=== PATIENT | female | born 1975 | race African-American/Black ===

== ENCOUNTER 2022-03-03 12:15 | Inpatient (IN) ==
--- NOTE | 2022-03-03 13:57 | Emergency Department Note ---
Impression & Plan Hallucinations, Hypokalemia, Anxiety ED Provider Note Provider: Gt Wilkinson MD DATE OF SERVICE: 03/03/2022 CHIEF COMPLAINT: Hearing voices HISTORY OF PRESENT ILLNESS: Patient is a 46-year-old female history of uterine fibroid as well as she reports schizophrenia presenting here today brought by police. Evidently the police were called to the patient's apartment for disturbance. Per report given to nursing the police only found her and then she came in for evaluation. She reports to me that she is taking her medications, topiramate, and following with outpatient psychiatry. She tells me that she has had some white bumps occur on her feet but they appear better now more just like calluses. She states that over the last day or so she has begun to see sort of a transparent blob and she is been hearing commanding voices. She states that they are not making threatening statements but not telling her to hurt her self or anyone else. She states she does not have thoughts of wanting to hurt herself or anyone else. She states she is scared to go home and states she cannot sleep because things are happening. She states she has fibroids and is followed with [facility] gynecology. She states she has been having a sensation that she is having pressure at times in her vagina. She states it almost feels like something is had sex with her. She also states that she been having frequent odd smell sensation. Denies recent fever or abdominal pain. Patient reports a history of inpatient psychiatric care. Patient has required frequent reassurance and redirection by nursing staff upon arrival as she was worked up. REVIEW OF SYSTEMS: A total of 10 review of systems was obtained and negative except as stated above in the HPI. PAST MEDICAL HISTORY: As noted above MEDICATIONS: No medications with the patient which she reports includes Topamax SOCIAL HISTORY: Lives in an apartment PHYSICAL EXAM: GENERAL: alert and oriented in no acute distress on stretcher but at times anxious appearing Head: normocephalic and atraumatic EYES: No injection, discharge or icterus. NECK: Trachea midline. Supple. ENT: Mucous membranes pink and moist. LUNGS: Airway patent. No retractions. Breath sounds clear with good air entry bilaterally. HEART: Regular rate and rhythm. No chest wall tenderness ABDOMEN: Soft and non-tender, without guarding or rebound. SKIN: Acyanotic, warm, dry, without rashes EXTREMITIES: Without swelling, tenderness or deformity some mild calluses on the bilateral heels. NEUROLOGICAL: No focal deficits. No aphasia. No facial droop or slurred speech. Normal strength and tone in the extremities. Sensation to gross touch normal. Ambulatory. Psych: Endorses anxiety but denies significant depression or suicidal ideation. Reporting hallucination of burning smell as well as commanding voices and transparent. Patient occasionally requires a bit of redirection during the interview. Patient's laboratory studies and imaging reviewed. Differential includes Mood disorder, infection, hypoglycemia, electrolyte abnormalities, cardiac sources, intracerebral event, toxicologic, trauma, neurologic, as well as other pathologies. IMPRESSION/MEDICAL DECISION MAKING: Patient presents here for evaluation of the onset of visual and auditory hallucinations. Reports a history of schizophrenia. States she is taking her mood stabilizer she describes as topiramate. Patient denies any falls or trauma. She reports that she is having a smell sensation at times. Reviewed medical record and she is been evaluated here for vaginal pressure sensation recently. Did have imaging showing evidence of a uterine fibroid and states that she is planning to follow-up this coming week with her campus police officer. She denies significant vaginal bleeding or pain but occasionally has some pressure. Not significant concern for acute gynecological intra-abdominal process given this. Were concerning however is the reports of some transparent visual hallucinations as well as auditory hallucinations with the voice telling her things. She denies that they have instructed her to harm her self but they seem somewhat threatening in nature and she is very anxious and despondent about this. Basic blood work was obtained here. No focal neurological deficit I do ubt any acute intracranial bleed or stroke at this time. No seizure-like activity reported. Question if she is having psychosis at this time. Blood work and urine here without severe abnormality although given a tablet of potassium. Patient agreeable this time for inpatient psychiatric care and bed search will begin. Patient given Ativan from some anxiety with improvement. DIAGNOSIS: Hallucinations, hypokalemia, anxiety DISPOSITION: Signed out to me by shift pending inpatient psychiatric treatment on a voluntary basis. Patient to be in observation from 13:36 hrs pending psychiatric almaz cement. Signed out to Dr. Nye. Past Med/Surg History Medical History Elevated LFTs Fibroid, uterine Mental health disorder No pertinent past medical history Surgical History No pertinent past surgical history Social History Smoking Status: Never smoker Tobacco Type: Cigarettes Preferred Language: Syrian Feels Safe at Home: Yes Allergies Allergies Allergy/AdvReac Type Severity Reaction Status Date / Time Penicillins Allergy Severe anaphalyxis Unverified 02/26/22 08:36 and hives Home Meds Home Medications Medication Instructions Recorded Confirmed Mood Stabilizer 0 tab PO DAILY 02/26/22 03/03/22 acetaminophen 500 mg tablet 500 mg PO Q6H PRN 02/26/22 03/03/22 (Tylenol Extra Strength) metformin 1,000 mg tablet 1,000 mg PO BIDM 02/26/22 03/03/22 phentermine 37.5 mg capsule 37.5 mg PO DAILY 02/26/22 03/03/22 topiramate 50 mg tablet 50 mg PO DAILY 03/03/22 03/03/22 Previous Rx's Medication Instructions Recorded magnesium oxide 400 mg PO BID #60 cap 02/26/22 potassium chloride 20 mEq oral 20 meq PO DAILY #30 ea 02/26/22 packet Results & Data (ED) Vital Signs Vital Signs - 24 hr 03/03/22 12:16 03/03/22 14:16 03/03/22 17:03 Temperature 36.5 C 36.7 C Temperature Source Oral Oral Pulse Rate 98 H Pulse Rate [Finger] 85 90 Pulse Rhythm Regular Pulse Rhythm [Finger] Regular Regular Pulse Strength Normal Pulse Strength [Finger] Normal Normal Respiratory Rate 22 16 18 Respiratory Effort / Characteristics Non-Labored Non-Labored Non-Labored Respiratory Depth Normal Normal Normal Respiratory Pattern Regular Blood Pressure 121/86 Blood Pressure [Left Arm] 145/76 H 136/93 Blood Pressure Mean 97 Blood Pressure Mean [Left Arm] 99 107 Blood Pressure Position [Left Arm] Sitting Pulse Oximetry 98 98 100 Oxygen Delivery Method Room Air Room Air Sepsis Recent Fever Within 48 Hours No Sepsis New/Unexplained Change in Mental Status N/A Sepsis Action Taken by Nursing No Action Required Laboratory Data Result diagrams: 03/03/22 13:36 03/03/22 13:36 Lab Results 03/03/22 03/03/22 03/03/22 Range/Units 12:35 13:36 13:36 WBC 5.17 (4.8-10.8) K/uL RBC 3.90 L (4.2-5.4) M/uL Hgb 12.6 (12.0-16.0) g/dL Hct 36.7 L (37-47) % MCV 94.1 (80-100) fL MCH 32.3 (25-34) pg MCHC 34.3 (32-36) g/dL RDW Std Deviation 51.6 H (36.4-46.3) fL RDW Coeff of Xiomara 15.2 H (11.5-14.5) % Plt Count 330 (130-400) K/uL MPV 9.3 (7.4-10.4) fL Immature Gran % (Auto) 0.4 % Neut % (Auto) 42.1 % Lymph % (Auto) 46.6 % [place] % (Auto) 9.5 % Eos % (Auto) 1.2 % Baso % (Auto) 0.2 % Neut # (Auto) 2.18 (1.4-6.5) K/uL Lymph # (Auto) 2.41 (1.2-3.4) K/uL [place] # (Auto) 0.49 (0.11-0.59) K/uL Eos # (Auto) 0.06 (0-0.5) K/uL Baso # (Auto) 0.01 (0-0.2) K/uL Immature Gran # (Auto) 0.02 (0.00-0.02) K/uL Sodium 139 (136-145) mmol/L Potassium 3.1 L (3.5-5.1) mmol/L Chloride 106 (98-107) mmol/L Carbon Dioxide 24 (21-32) mmol/L Anion Gap 9 (3-11) BUN 7 (6-23) mg/dl Creatinine 0.97 (0.6-1.2) mg/dl Est Cr Clr Drug Dosing 81.4 ml/min Est GFR ( Amer) 80.6 ml/min Est GFR (Non-Af Amer) 69.6 ml/min BUN/Creatinine Ratio 7.2 L (10-20) Glucose 87 (70-99(Fasting)) mg/dl Calcium 8.9 (8.5-10.1) mg/dl Total Bilirubin 0.5 (0.2-1.0) mg/dl AST 51 H (13-39) U/L ALT 29 (7-52) U/L Alkaline Phosphatase 53 (34-104) U/L Total Protein 7.4 (6.0-8.3) gm/dl Albumin 4.0 (3.4-5.0) gm/dl Globulin 3.4 (2.5-4.0) gm/dl Albumin/Globulin Ratio 1.2 (0.9-2) TSH (0.300-4.500) uIu/ml Urine Color Urine Appearance (Clear) Urine pH (4.5-7.5) Ur Specific Fin[place] (1.000-1.030) Urine Protein (Negative) Urine Glucose (UA) (Negative) Urine Ketones (Negative) Urine Blood (Negative) Urine Nitrite (Negative) Urine Bilirubin (Negative) Urine Urobilinogen (Negative) Ur Leukocyte Esterase (Negative) Urine WBC (Auto) (0-5) /hpf Urine RBC (Auto) (0-4) /hpf U Hyaline Cast (Auto) (0-5) /lpf U Epithel Cells (Auto) (0-5) /lpf Urine Bacteria (Auto) (Negative) POC Ur Test (NEG) Salicylates (3.0-30) mg/dl Urine Opiates Screen (Neg) Ur Methadone, Qual (Neg) Acetaminophen (10-30) ug/ml Urine Barbiturates (Neg) Ur Phencyclidine (PCP) (Neg) U Amphetamin/Meth Scrn (Neg) MDMA (Ecstasy) Screen (Neg) U Benzodiazepines Scrn (Neg) Ur Cocaine Metabolite (Neg) U Marijuana (THC) Screen (Neg) Ethyl Alcohol mg/dL (<10.0) mg/dl SARS-CoV-2, RNA, NAAT NEGATIVE (NEGATIVE) 03/03/22 03/03/22 03/03/22 Range/Units 13:36 13:36 13:36 WBC (4.8-10.8) K/uL RBC (4.2-5.4) M/uL Hgb (12.0-16.0) g/dL Hct (37-47) % MCV (80-100) fL MCH (25-34) pg MCHC (32-36) g/dL RDW Std Deviation (36.4-46.3) fL RDW Coeff of Xiomara (11.5-14.5) % Plt Count (130-400) K/uL MPV (7.4-10.4) fL Immature Gran % (Auto) % Neut % (Auto) % Lymph % (Auto) % [place] % (Auto) % Eos % (Auto) % Baso % (Auto) % Neut # (Auto) (1.4-6.5) K/uL Lymph # (Auto) (1.2-3.4) K/uL [place] # (Auto) (0.11-0.59) K/uL Eos # (Auto) (0-0.5) K/uL Baso # (Auto) (0-0.2) K/uL Immature Gran # (Auto) (0.00-0.02) K/uL Sodium (136-145) mmol/L Potassium (3.5-5.1) mmol/L Chloride (98-107) mmol/L Carbon Dioxide (21-32) mmol/L Anion Gap (3-11) BUN (6-23) mg/dl Creatinine (0.6-1.2) mg/dl Est Cr Clr Drug Dosing ml/min Est GFR ( Amer) ml/min Est GFR (Non-Af Amer) ml/min BUN/Creatinine Ratio (10-20) Glucose (70-99(Fasting)) mg/dl Calcium (8.5-10.1) mg/dl Total Bilirubin (0.2-1.0) mg/dl AST (13-39) U/L ALT (7-52) U/L Alkaline Phosphatase (34-104) U/L Total Protein (6.0-8.3) gm/dl Albumin (3.4-5.0) gm/dl Globulin (2.5-4.0) gm/dl Albumin/Globulin Ratio (0.9-2) TSH 0.738 (0.300-4.500) uIu/ml Urine Color Urine Appearance (Clear) Urine pH (4.5-7.5) Ur Specific [place] (1.000-1.030) Urine Protein (Negative) Urine Glucose (UA) (Negative) Urine Ketones (Negative) Urine Blood (Negative) Urine Nitrite (Negative) Urine Bilirubin (Negative) Urine Urobilinogen (Negative) Ur Leukocyte Esterase (Negative) Urine WBC (Auto) (0-5) /hpf Urine RBC (Auto) (0-4) /hpf U Hyaline Cast (Auto) (0-5) /lpf U Epithel Cells (Auto) (0-5) /lpf Urine Bacteria (Auto) (Negative) POC Ur Test (NEG) Salicylates < 3.0 L (3.0-30) mg/dl Urine Opiates Screen (Neg) Ur Methadone, Qual (Neg) Acetaminophen < 3 L (10-30) ug/ml Urine Barbiturates (Neg) Ur Phencyclidine (PCP) (Neg) U Amphetamin/Meth Scrn (Neg) MDMA (Ecstasy) Screen (Neg) U Benzodiazepines Scrn (Neg) Ur Cocaine Metabolite (Neg) U Marijuana (THC) Screen (Neg) Ethyl Alcohol mg/dL < 10.0 (<10.0) mg/dl SARS-CoV-2, RNA, NAAT (NEGATIVE) 03/03/22 03/03/22 03/03/22 Range/Units 15:05 Unknown Unknown WBC (4.8-10.8) K/uL RBC (4.2-5.4) M/uL Hgb (12.0-16.0) g/dL Hct (37-47) % MCV (80-100) fL MCH (25-34) pg MCHC (32-36) g/dL RDW Std Deviation (36.4-46.3) fL RDW Coeff of Xiomara (11.5-14.5) % Plt Count (130-400) K/uL MPV (7.4-10.4) fL Immature Gran % (Auto) % Neut % (Auto) % Lymph % (Auto) % [place] % (Auto) % Eos % (Auto) % Baso % (Auto) % Neut # (Auto) (1.4-6.5) K/uL Lymph # (Auto) (1.2-3.4) K/uL [place] # (Auto) (0.11-0.59) K/uL Eos # (Auto) (0-0.5) K/uL Baso # (Auto) (0-0.2) K/uL Immature Gran # (Auto) (0.00-0.02) K/uL Sodium (136-145) mmol/L Potassium (3.5-5.1) mmol/L Chloride (98-107) mmol/L Carbon Dioxide (21-32) mmol/L Anion Gap (3-11) BUN (6-23) mg/dl Creatinine (0.6-1.2) mg/dl Est Cr Clr Drug Dosing ml/min Est GFR ( Amer) ml/min Est GFR (Non-Af Amer) ml/min BUN/Creatinine Ratio (10-20) Glucose (70-99(Fasting)) mg/dl Calcium (8.5-10.1) mg/dl Total Bilirubin (0.2-1.0) mg/dl AST (13-39) U/L ALT (7-52) U/L Alkaline Phosphatase (34-104) U/L Total Protein (6.0-8.3) gm/dl Albumin (3.4-5.0) gm/dl Globulin (2.5-4.0) gm/dl Albumin/Globulin Ratio (0.9-2) TSH (0.300-4.500) uIu/ml Urine Color Dark Yellow Urine Appearance Clear (Clear) Urine pH 5.5 (4.5-7.5) Ur Specific [place] 1.019 (1.000-1.030) Urine Protein 1+ H (Negative) Urine Glucose (UA) Negative (Negative) Urine Ketones Trace H (Negative) Urine Blood Negative (Negative) Urine Nitrite Negative (Negative) Urine Bilirubin Negative (Negative) Urine Urobilinogen Negative (Negative) Ur Leukocyte Esterase Negative (Negative) Urine WBC (Auto) 1-5 (0-5) /hpf Urine RBC (Auto) 0-4 (0-4) /hpf U Hyaline Cast (Auto) 1-5 (0-5) /lpf U Epithel Cells (Auto) >30 H (0-5) /lpf Urine Bacteria (Auto) Negative (Negative) POC Ur Test NEG (NEG) Salicylates (3.0-30) mg/dl Urine Opiates Screen Neg (Neg) Ur Methadone, Qual Neg (Neg) Acetaminophen (10-30) ug/ml Urine Barbiturates Neg (Neg) Ur Phencyclidine (PCP) Neg (Neg) U Amphetamin/Meth Scrn Pos H (Neg) MDMA (Ecstasy) Screen Pos H (Neg) U Benzodiazepines Scrn Neg (Neg) Ur Cocaine Metabolite Neg (Neg) U Marijuana (THC) Screen Neg (Neg) Ethyl Alcohol mg/dL (<10.0) mg/dl SARS-CoV-2, RNA, NAAT (NEGATIVE) Administered Medications Discontinued Medications Lorazepam (Lorazepam 1 Mg Tab) Confirm Administered Dose 1 mg .ROUTE .STK-MED ONE Stop: 03/03/22 17:05 Last Admin: 03/03/22 17:05 Dose: 1 mg Documented by: [id number] Potassium Chloride (Potassium Chloride Crtab 20 Meq Tabcr) 40 meq PO NOW STA Stop: 03/03/22 15:37 Last Admin: 03/03/22 15:54 Dose: 40 meq Documented by: [id number] Discharge Plan Visit Data Chief Complaint: Mental Health Evaluation Stated Complaint: MENTAL HEALTH EVAL ED Provider: Gt Wilkinson Discharge Problem: Hallucinations, Hypokalemia, Anxiety Patient Disposition: Still a Patient Forms Stand Alone Forms: [facility], Suicide Prevention Resources Prescriptions Prescriptions: No Action topiramate 50 mg tablet 50 mg PO DAILY RF: 0 acetaminophen [Tylenol Extra Strength] 500 mg Tablet 500 mg PO Q6H PRN (Reason: Pain) RF: 0 metformin 1,000 mg tablet 1,000 mg PO BIDM RF: 0 phentermine 37.5 mg capsule 37.5 mg PO DAILY RF: 0 Mood Stabilizer 0 tab PO DAILY RF: 0 potassium chloride 20 mEq packet 20 meq PO DAILY Qty: 30 RF: 0 magnesium oxide 400 mg magnesium capsule 400 mg PO BID Qty: 60 RF: 0 Referrals Referrals: Zee Kirk MD [Primary Care Provider] -
[2022-03-03 14:15] LABS: Basophils # (auto) 0.01 K/uL (0-0.2); Basophils % (auto) 0.2 %; Eosinophils # (auto) 0.06 K/uL (0-0.5); Eosinophils % (auto) 1.2 %; Hematocrit (blood only) 36.7 % (37-47); Hemoglobin 12.6 g/dL (12.0-16.0); Immature Granulocytes # (auto) 0.02 K/uL (0.00-0.02); Immature Granulocytes % (auto) 0.4 %; Lymphocytes # (auto) 2.41 K/uL (1.2-3.4); Lymphocytes % (auto) 46.6 %; Mean Corpuscular Hemoglobin 32.3 pg (25-34); Mean Corpuscular Hgb Conc 34.3 g/dL (32-36); Mean Corpuscular Volume 94.1 fL (80-100); Mean Platelet Volume 9.3 fL (7.4-10.4); Monocytes # (auto) 0.49 K/uL (0.11-0.59); Monocytes % (auto) 9.5 %; Neutrophils # (auto) 2.18 K/uL (1.4-6.5); Neutrophils % (auto) 42.1 %; Platelet Count 330 K/uL (130-400); RDW Coefficient of Variation 15.2 % (11.5-14.5); RDW Standard Deviation 51.6 fL (36.4-46.3); White Blood Count 5.17 K/uL (4.8-10.8)
[2022-03-03 14:27] LABS: Acetaminophen < 3 ug/ml (10-30); Albumin Globulin Ratio 1.2 (0.9-2); BUN Creatinine Ratio 7.2 (10-20); Bilirubin,Total 0.5 mg/dl (0.2-1.0); Calcium 8.9 mg/dl (8.5-10.1); Creatinine Clr Calc Pharmacy 81.4 ml/min; Est GFR (African American) 80.6 ml/min; Est GFR (Non-African American) 69.6 ml/min; Globulin 3.4 gm/dl (2.5-4.0); Potassium 3.1 mmol/L (3.5-5.1); Salicylate < 3.0 mg/dl (3.0-30); Total Protein 7.4 gm/dl (6.0-8.3)
[2022-03-03] MEDS ORDERED: POTASSIUM CHLORIDE CRTAB 20 MEQ TABCR PO STA (15:36)
[2022-03-03 15:37] LABS: Appearance Urine Clear (Clear); Bacteria Urine Automated Negative (Negative); Bilirubin Urine Negative (Negative); Blood Urine Negative (Negative); Color Urine Dark Yellow; Epithelial Cell Urine Auto >30 /lpf (0-5); Glucose Urine UA Negative (Negative); Ketones Urine Trace (Negative); Leukocyte Esterase Urine Negative (Negative); Nitrite Urine Negative (Negative); Protein Urine 1+ (Negative); RBC Urine Automated 0-4 /hpf (0-4); Specific Gravity Urine 1.019 (1.000-1.030); Urobilinogen Urine Negative (Negative); pH Urine 5.5 (4.5-7.5)
[2022-03-03 16:24] LABS: Amphetamines+Metham, Urine Pos (Neg); Barbiturates, Urine Neg (Neg); Benzodiazepine, Urine Neg (Neg); Cocaine, Urine Neg (Neg); MDMA (Ecstacy), Urine Pos (Neg); Methadone, Urine Neg (Neg); Opiate, Urine Neg (Neg); Phencyclidine, Urine Neg (Neg)
[2022-03-03] MEDS ORDERED: LORazepam 1 MG TAB ONE (17:04)
--- NOTE | 2022-03-03 17:47 | Emergency Department Note ---
ED Visit Note ED Physician Sign Out Note: 46 yr old female with a long history of schizophrenia arrives with acute thoughts of paranoia and anxiety. Medically cleared by Dr Wilkinson and plan for 201 voluntary hospitalization. Pending placement at time of sign out to me. Placed in observation at 13:36 on 03/03/[address] Wilkinson pending placement. Patient was accepted to [facility]. at 18:00 on 03/03/22 and 201 was signed by me at which point she was transferred to their unit. Cornell Nye MD
[2022-03-03] MEDS ORDERED: ACETAMINOPHEN 325 MG TAB PO PRN (18:19)
[2022-03-03] MEDS ORDERED: BISMUTH SUBSALICYLATE LIQD 236 ML PO PRN (18:19)
[2022-03-03] MEDS ORDERED: SODIUM CHLORIDE 0.65% NA SOLN 45 ML (OCEAN) PRN (18:19)
[2022-03-03] MEDS ORDERED: hydrOXYzine HCl 25 MG TAB PO PRN ×2 (18:19)
[2022-03-03] MEDS ORDERED: MAGNESIUM HYDROXIDE SUSP 30 ML UDC PO PRN (18:19)
[2022-03-03] MEDS ORDERED: ALUMINUM/MAGNESIUM SUSP 30 ML UDC PO PRN (18:19)
[2022-03-03] MEDS ORDERED: NICOTINE POLACRILEX 2 MG GUM MT PRN (19:14)
[2022-03-03] MEDS: OLANZapine 5 MG TABLET PO PRN (21:42)
[2022-03-04] MEDS: OLANZapine 5 MG TABLET PO PRN ×3 (07:39→17:15)
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
[2022-03-04] MEDS: LORazepam 1 MG TAB PO PRN (12:35)
[2022-03-04] MEDS: MAGNESIUM OXIDE 400 MG TAB PO SCH ×2 (12:35→21:42)
[2022-03-04] MEDS: POTASSIUM CHLORIDE PWD 20 MEQ PACK PO SCH (12:35)
[2022-03-04] MEDS: TOPIRAMATE 50 MG TAB PO SCH (12:36)
[2022-03-04] MEDS: NICOTINE 21 MG/24 HR TDSY TD SCH (12:37)
[2022-03-04] MEDS: metFORMIN HCL 500 MG TAB PO SCH (17:15)
[2022-03-05] MEDS: metFORMIN HCL 500 MG TAB PO SCH ×2 (08:14→17:13)
[2022-03-05] MEDS: POTASSIUM CHLORIDE PWD 20 MEQ PACK PO SCH (08:14)
[2022-03-05] MEDS: MAGNESIUM OXIDE 400 MG TAB PO SCH ×2 (08:14→21:51)
[2022-03-05] MEDS: OLANZapine 5 MG TABLET PO PRN ×3 (08:15→21:52)
[2022-03-05] MEDS: TOPIRAMATE 50 MG TAB PO SCH (08:15)
[2022-03-05] MEDS: NICOTINE 21 MG/24 HR TDSY TD SCH (09:31)
[2022-03-05] MEDS: LORazepam 1 MG TAB PO PRN ×2 (10:41→17:34)
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
[2022-03-05] MEDS ORDERED: CAPSAICIN CR 0.075% 60 GM TUBE EXT PRN (13:04)
[2022-03-05] MEDS: LURASIDONE HCL 40 MG TAB PO SCH (17:13)
[2022-03-05] MEDS ORDERED: GABAPENTIN 300 MG CAP PO SCH (22:00)
[2022-03-06 07:56] LABS: Chol HDL Ratio 2.3 (0-5); Potassium 4.1 mmol/L (3.5-5.1)
[2022-03-06] MEDS: NICOTINE 21 MG/24 HR TDSY TD SCH (08:40)
[2022-03-06] MEDS: MAGNESIUM OXIDE 400 MG TAB PO SCH ×2 (08:40→21:27)
[2022-03-06] MEDS: POTASSIUM CHLORIDE PWD 20 MEQ PACK PO SCH (08:41)
[2022-03-06] MEDS: metFORMIN HCL 500 MG TAB PO SCH ×2 (08:41→17:35)
[2022-03-06] MEDS: TOPIRAMATE 50 MG TAB PO SCH (08:42)
[2022-03-06] MEDS: GABAPENTIN 300 MG CAP PO SCH ×2 (13:22→21:27)
--- NOTE | 2022-03-06 13:27 | Psychiatric Progress Note ---
Date of Service March 06, 2022 Impression / Recommendations Impression Antelmo is a 46 yo female with a history of schizophrenia, non compliant with antispsychotic medications for at least several months and prescribed an agent that increases dopamine for weight loss. Phentiramine side effects apparently can also include a tingling sensation in the hands and feet which may be contributing to some of her somatic delusions. She currently needs to rest and has been cooperative with prn Zyprexa which is helping acutely but another agent with a more favorable metabolic profile would be preferred longer term. Started Latuda trial on 03/05/22. Continues on MNPR due to psychosis. 03/06/22: some improvement in that less thought blocked, hallucinations primarily auditory at this point, tolerated first dose of Latuda. (1) Schizophrenia: 03/06/22: one more dose of Latuda 40 mg before increase, would like to confirm authorization prior to titrating in case need to switch agents. Notes from [place] note a trial of Rexulti samples. Titrate Neurontin to 300 mg BID today and TID tomorrow to assist with anxiety and possible neuropathic pain. Decrease prn Zyprexa to 2.5 mg and use Ativan preferentially as concern if sedation continues patient may start to refuse medications. 03/05/22: risks/benefits/alternatives reviewed re: Latuda 40 mg daily with plan for 60 mg as she has been taking other PO meds consistently even when more psychotic and better metabolic profile than agents available by [facility]. Discussion included but was not limited to need for metabolic and TD monitoring but less side effects than Zyprexa and Haldol and she was agreeable. She does not have DM and her complaints about her hands and feet are likely related to tactile angel or medication side effect but will offer Neurontin this hs and she was willing for even capsaicin cream in case there is a neuropathy component, both are on a trial basis. 03/04/22: The patient was admitted to the [facility] ([facility]) on q15 min checks (behavioral with suicide precautions) for safety. The patient will participate in group, recreational, and milieu therapies and will be offered additional individual and family sessions as clinically appropriate. Hold Phentiramine, given that she is grossly psychotic I do not see a need to taper but will monitor for rebound of appetite, particularly with Zyprexa. Will discuss other antipsychotic options when patient is clearer/able. Will provide Ativan prn 1 mg for severe anxiety if breakthrough between Zyprexa doses. Inventory Assets Strengths: unable to assess Needs: compliance with antipsychotic medications, after care Suicide Risk Level Suicide Risk Level: Moderate (q15 min suicide checks) Suicide Risk Level Comments: has denied SI but is active psychotic, no significant agitation. Risk Factors Assessment Mental Health Diagnoses: Yes Protective Factors Assessment Employed: Yes Supportive Family: Yes (need to confirm) Interval History Identifying Information ANTELMO JEAN-BAPTISTE is a 46-year-old F who currently lives in [place], has a history (reportedly) of schizophrenia, and was admitted on 03/03/22 18:19 on a 201 voluntary commitment for delusions and hallcuinations. Chief Complaint "I don't understand why this is happening but I also can't be this tired." Review of Systems Sleep Information Total Hours of Sleep: 6 Sleep Comments: pt on q-15 minute checks Meal Information Percent Meal Consumed - Breakfast: 100 Percent Meal Consumed - Lunch: 100 Percent Meal Consumed - Dinner: 100 Subjective Subjective Patient was seen & assessed and interval progress reviewed with nursing and social work. States her voices are still present but mainly mumbles. Staff see her at times hitting the couch or darting eyes in response to voices and she seems to have mild thought blocking of suspiciousness upon approach. Receiving multiple prns throughout the day. Slept 6 hrs. Today seems more organized to get numbers out of her phone and contact work. 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 She did not submit a 72 hr notice around this issue but clearly states she wants to attend the appointment. She seems less focussed on her hands and feets but does not necessarily attribute it to neurontin. "I'm just so tired that I can't notice it." Physical Exam Psychiatric Orientation: alert Apperance: appropriately dressed and appropriately groomed Eye Contact: + fair eye contact Motor Behavior: no abnormal motor movements Speech: normal rate/rhythm/volume of speech Affect: + anxious affect and + blunted affect Mood: + anxious mood Thought Process: + concrete thought process; no thought blocking Thought Content: + delusions and + persecution (but less) Suicidal Thoughts: denies suicidal thoughts Homicidal Thoughts: denies homicidal thoughts Hallucinations: + auditory hallucinations; no visual hallucinations Cognition: language grossly intact; + attention not intact Insight: + poor insight Judgement: + poor judgement Vital Signs (Past 24 Hours) Last Vital Signs Temp 36.8 C 03/06/22 06:36 Pulse 94 H 03/06/22 06:37 Resp 18 03/06/22 06:36 BP 136/92 03/06/22 06:37 Pulse Ox 98 03/03/22 19:26 [facility] & [facility] Laboratory Results Laboratory Results - last 24 hr 03/06/22 07:18 Potassium 4.1 Fasting Glucose 94 Triglycerides 113 Cholesterol 163 LDL Cholesterol, Calc 69 VLDL Cholesterol, Calc 23 HDL Cholesterol 71 Cholesterol/HDL Ratio 2.3 Current Inpatient Medications Current Inpatient Medications: Current Inpatient Medications Acetaminophen (Acetaminophen 325 Mg Tab) 650 mg PO Q4H PRN PRN Reason: Headache or Minor Fever Stop: 04/02/22 18:18 Al Hydrox/Mg Hydrox/Simethicone (Aluminum/Magnesium Susp 30 Ml Udc) 30 ml PO Q4H PRN PRN Reason: GI Upset Stop: 04/02/22 18:18 Bismuth Subsalicylate (Bismuth Subsalicylate Liqd 236 Ml) 15 ml PO PRN PRN PRN Reason: Loose Stool Stop: 04/02/22 18:18 Capsaicin (Capsaicin Cr 0.075% 60 Gm Tube) 1 appln EXT BID PRN PRN Reason: Pain Stop: 04/04/22 13:03 Gabapentin (Gabapentin 300 Mg Cap) 300 mg PO TID [facility] Stop: 04/05/22 13:59 Hydroxyzine HCl (Hydroxyzine Hcl 25 Mg Tab) 50 mg PO HSZ PRN PRN Reason: Insomnia Stop: 04/02/22 18:18 Hydroxyzine HCl (Hydroxyzine Hcl 25 Mg Tab) 25 mg PO Q4H PRN PRN Reason: Anxiety Stop: 04/02/22 18:18 Lorazepam (Lorazepam 1 Mg Tab) 1 mg PO Q6 PRN PRN Reason: Anxiety Stop: 04/03/22 10:42 Last Admin: 03/05/22 17:34 Dose: 1 mg Documented by: Lurasidone HCl (Lurasidone Hcl 40 Mg Tab) 40 mg PO QDD [facility] Stop: 04/04/22 17:44 Last Admin: 03/05/22 17:13 Dose: 40 mg Documented by: Magnesium Hydroxide (Magnesium Hydroxide Susp 30 Ml Udc) 30 ml PO DAILY PRN PRN Reason: Constipation Stop: 04/02/22 18:18 Magnesium Oxide (Magnesium Oxide 400 Mg Tab) 400 mg PO BID [facility] Stop: 04/03/22 11:14 Last Admin: 03/06/22 08:40 Dose: 400 mg Documented by: Metformin HCl (Metformin Hcl 500 Mg Tab) 1,000 mg PO BIDM [facility] Stop: 04/03/22 17:44 Last Admin: 03/06/22 08:41 Dose: 1,000 mg Documented by: Miscellaneous (Remove Nicoderm Patch) 1 ea N/A DAILY@0859 [facility] Stop: 04/03/22 08:58 Last Admin: 03/06/22 08:40 Dose: 1 ea Documented by: Nicotine (Nicotine 21 Mg/24 Hr Tdsy) 21 mg TD QAM [facility] Stop: 04/03/22 08:59 Last Admin: 03/06/22 08:40 Dose: 21 mg Documented by: Nicotine Polacrilex (Nicotine Polacrilex 2 Mg Gum) 1 piece MT PRN PRN PRN Reason: Nicotine Olanzapine (Olanzapine 2.5 Mg Tab) 2.5 mg PO Q4 PRN PRN Reason: Agitation Stop: 04/02/22 19:11 Potassium Chloride (Potassium Chloride Pwd 20 Meq Pack) 20 meq PO DAILY [facility] Stop: 04/03/22 11:14 Last Admin: 03/06/22 08:41 Dose: 20 meq Documented by: Sodium Chloride (Sodium Chloride 0.65% Na Soln 45 Ml ([place])) 1 - 2 sprays NA PRN PRN PRN Reason: Nasal Dryness/Congestion Stop: 04/02/22 18:18 Topiramate (Topiramate 50 Mg Tab) 50 mg PO DAILY [facility] Stop: 04/03/22 11:14 Last Admin: 03/06/22 08:42 Dose: 50 mg Documented by: Mental Health & Subst Abuse Tx Psychiatrist Name of Psychiatrist: Mary Jordan PA-C Psychiatrist's Date of Appointment with Psychiatrist: 04/03/22 Time of Appointment with Psychiatrist: 3:00 p.m. Psychiatric Appointment Comment: [address] [facility] Therapist Name of Therapist: None Center Customer Service Associate Name of Center Customer Service Associate: None Post Discharge Appointments Primary Care Physician Name Of Family Doctor: Mary Washington - Dr. Tom Primary [facility] Date of Appointment with PCP: 03/20/22 Time of Appointment with PCP: 9:00 a.m. Provider Appointment Comment: [address] [facility] Contact Information Discharge Discharge Address: [address] [place] [address], [place] [address]
[2022-03-06] MEDS: LURASIDONE HCL 40 MG TAB PO SCH (17:36)
[2022-03-07] MEDS: NICOTINE 21 MG/24 HR TDSY TD SCH (08:25)
[2022-03-07] MEDS: MAGNESIUM OXIDE 400 MG TAB PO SCH ×2 (08:25→21:31)
[2022-03-07] MEDS: GABAPENTIN 300 MG CAP PO SCH ×3 (08:25→21:31)
[2022-03-07] MEDS: metFORMIN HCL 500 MG TAB PO SCH ×2 (08:25→17:05)
[2022-03-07] MEDS: POTASSIUM CHLORIDE PWD 20 MEQ PACK PO SCH (08:26)
[2022-03-07] MEDS: TOPIRAMATE 50 MG TAB PO SCH (08:26)
[2022-03-07] MEDS ORDERED: traZODone HCL 50 MG TAB PO PRN (10:14)
--- NOTE | 2022-03-07 14:12 | Psychiatric Progress Note ---
Date of Service March 07, 2022 Impression / Recommendations Impression Antelmo is a 46 yo female with a history of schizophrenia, non compliant with antispsychotic medications for at least several months and prescribed an agent that increases dopamine for weight loss. Phentiramine side effects apparently can also include a tingling sensation in the hands and feet which may be contributing to some of her somatic delusions. She currently needs to rest and has been cooperative with prn Zyprexa which is helping acutely but another agent with a more favorable metabolic profile would be preferred longer term. Started Latuda trial on 03/05/22, refused 03/06/22. Continues on MNPR due to psychosis. 03/07/22: delay in Latuda trial and authorization. Continues to improve despite significant decrease in prn medications. (1) Schizophrenia: 03/07/22: patient was initially requesting discharge. Reviewed 72 hr notice and current treatment plan/need for additional stabilization. After extensive discussion about her diagnosis and treatment plan she is agreeable to remain hospitalized. Latuda increase tomorrow after determination from insurance and because only received 1 dose. Neurontin is now TID and seems to have decreased need for benzo. Continues to focus on hand/feet/vagina "vibrating" but no longer saying that anyone is poking her or that it's burning. 03/06/22: one more dose of Latuda 40 mg before increase, would like to confirm authorization prior to titrating in case need to switch agents. Notes from [place] note a trial of Rexulti samples. Titrate Neurontin to 300 mg BID today and TID tomorrow to assist with anxiety and possible neuropathic pain. Decrease prn Zyprexa to 2.5 mg and use Ativan preferentially as concern if sedation continues patient may start to refuse medications. 03/05/22: risks/benefits/alternatives reviewed re: Latuda 40 mg daily with plan for 60 mg as she has been taking other PO meds consistently even when more psychotic and better metabolic profile than agents available by [facility]. Discussion included but was not limited to need for metabolic and TD monitoring but less side effects than Zyprexa and Haldol and she was agreeable. She does not have DM and her complaints about her hands and feet are likely related to tactile angel or medication side effect but will offer Neurontin this hs and she was willing for even capsaicin cream in case there is a neuropathy component, both are on a trial basis. 03/04/22: The patient was admitted to the [facility] ([facility]) on q15 min checks (behavioral with suicide precautions) for safety. The patient will participate in group, recreational, and milieu therapies and will be offered additional individual and family sessions as clinically appropriate. Hold Phentiramine, given that she is grossly psychotic I do not see a need to taper but will monitor for rebound of appetite, particularly with Zyprexa. Will discuss other antipsychotic options when patient is clearer/able. Will provide Ativan prn 1 mg for severe anxiety if breakthrough between Zyprexa doses. Inventory Assets Strengths: unable to assess Needs: compliance with antipsychotic medications, after care Suicide Risk Level Suicide Risk Level: Moderate (q15 min suicide checks) Suicide Risk Level Comments: has denied SI but is active psychotic, no significant agitation. Risk Factors Assessment Mental Health Diagnoses: Yes Protective Factors Assessment Employed: Yes Supportive Family: Yes (need to confirm) Interval History Identifying Information ANTELMO JEAN-BAPTISTE is a 46-year-old F who currently lives in [place], has a history (reportedly) of schizophrenia, and was admitted on 03/03/22 18:19 on a 201 voluntary commitment for delusions and hallcuinations. Chief Complaint "I don't understand why this is happening, I feel like something bad is going to happen, don't you believe that people can talk to each other". Review of Systems Sleep Information Total Hours of Sleep: 5.5 Sleep Comments: pt on q-15 minute checks Meal Information Percent Meal Consumed - Breakfast: 100 Percent Meal Consumed - Lunch: 100 Percent Meal Consumed - Dinner: 100 Subjective Subjective Patient was seen & assessed and interval progress reviewed with treatment team. Patient's understanding of her schizophrenia seems limited or at least limited by her current condition as she is trying to understand why has these issues over past 10 years and what that means. 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 She continues to believe that her apartment is "someone messing with me there." but would rather be "there t bacon here" as more control over her environment. She reportedly refused Latuda last pm. She states she just wanted drug information handout and that she is still willing to take it here and after she leaves the hospital. Insurance reports not getting her auth request so resubmitted. She denies visual angel. Most of the auditory angel she is describing were prior to admission. Struggles to organize but taking notes/making calls appropriately. Physical Exam Psychiatric Orientation: alert Apperance: appropriately dressed and appropriately groomed Eye Contact: + fair eye contact Motor Behavior: no abnormal motor movements Speech: normal rate/rhythm/volume of speech Affect: + anxious affect and + blunted affect Mood: + anxious mood Thought Process: + perseveration and + concrete thought process Thought Content: + delusions and + persecution (but less) Suicidal Thoughts: denies suicidal thoughts Homicidal Thoughts: denies homicidal thoughts Hallucinations: no auditory hallucinations and no visual hallucinations Cognition: attention grossly intact and language grossly intact Insight: + poor insight Judgement: + poor judgement Vital Signs (Past 24 Hours) Last Vital Signs Temp 37 C 03/07/22 06:30 Pulse 93 H 03/07/22 06:31 Resp 16 03/07/22 06:30 BP 148/110 H 03/07/22 06:31 Pulse Ox 98 03/03/22 19:26 Results & Data ([facility]) Current Inpatient Medications Current Inpatient Medications: Current Inpatient Medications Acetaminophen (Acetaminophen 325 Mg Tab) 650 mg PO Q4H PRN PRN Reason: Headache or Minor Fever Stop: 04/02/22 18:18 Al Hydrox/Mg Hydrox/Simethicone (Aluminum/Magnesium Susp 30 Ml Udc) 30 ml PO Q4H PRN PRN Reason: GI Upset Stop: 04/02/22 18:18 Bismuth Subsalicylate (Bismuth Subsalicylate Liqd 236 Ml) 15 ml PO PRN PRN PRN Reason: Loose Stool Stop: 04/02/22 18:18 Capsaicin (Capsaicin Cr 0.075% 60 Gm Tube) 1 appln EXT BID PRN PRN Reason: Pain Stop: 04/04/22 13:03 Gabapentin (Gabapentin 300 Mg Cap) 300 mg PO TID [facility] Stop: 04/05/22 13:59 Last Admin: 03/07/22 13:56 Dose: 300 mg Documented by: Hydroxyzine HCl (Hydroxyzine Hcl 25 Mg Tab) 25 mg PO Q4H PRN PRN Reason: Anxiety Stop: 04/02/22 18:18 Lorazepam (Lorazepam 1 Mg Tab) 1 mg PO Q6 PRN PRN Reason: Anxiety Stop: 04/03/22 10:42 Last Admin: 03/05/22 17:34 Dose: 1 mg Documented by: Lurasidone HCl (Lurasidone Hcl 40 Mg Tab) 40 mg PO QDD [facility] Stop: 04/04/22 17:44 Last Admin: 03/06/22 17:36 Dose: Not Given Documented by: Magnesium Hydroxide (Magnesium Hydroxide Susp 30 Ml Udc) 30 ml PO DAILY PRN PRN Reason: Constipation Stop: 04/02/22 18:18 Magnesium Oxide (Magnesium Oxide 400 Mg Tab) 400 mg PO BID [facility] Stop: 04/03/22 11:14 Last Admin: 03/07/22 08:25 Dose: 400 mg Documented by: Metformin HCl (Metformin Hcl 500 Mg Tab) 1,000 mg PO BIDM [facility] Stop: 04/03/22 17:44 Last Admin: 03/07/22 08:25 Dose: 1,000 mg Documented by: Miscellaneous (Remove Nicoderm Patch) 1 ea N/A DAILY@0859 [facility] Stop: 04/03/22 08:58 Last Admin: 03/07/22 08:24 Dose: 1 ea Documented by: Nicotine (Nicotine 21 Mg/24 Hr Tdsy) 21 mg TD QAM [facility] Stop: 04/03/22 08:59 Last Admin: 03/07/22 08:25 Dose: 21 mg Documented by: Nicotine Polacrilex (Nicotine Polacrilex 2 Mg Gum) 1 piece MT PRN PRN PRN Reason: Nicotine Olanzapine (Olanzapine 2.5 Mg Tab) 2.5 mg PO Q4 PRN PRN Reason: Agitation Stop: 04/02/22 19:11 Potassium Chloride (Potassium Chloride Pwd 20 Meq Pack) 20 meq PO DAILY [facility] Stop: 04/03/22 11:14 Last Admin: 03/07/22 08:26 Dose: 20 meq Documented by: Sodium Chloride (Sodium Chloride 0.65% Na Soln 45 Ml ([place])) 1 - 2 sprays NA PRN PRN PRN Reason: Nasal Dryness/Congestion Stop: 04/02/22 18:18 Topiramate (Topiramate 50 Mg Tab) 50 mg PO DAILY [facility] Stop: 04/03/22 11:14 Last Admin: 03/07/22 08:26 Dose: 50 mg Documented by: Trazodone HCl (Trazodone Hcl 50 Mg Tab) 50 mg PO HS [facility] Stop: 04/06/22 21:59 Trazodone HCl (Trazodone Hcl 50 Mg Tab) 50 mg PO HS PRN PRN Reason: insomnia Stop: 04/06/22 21:59 Mental Health & Subst Abuse Tx Psychiatrist Name of Psychiatrist: Mary Jordan PA-C Psychiatrist's Date of Appointment with Psychiatrist: 04/03/22 Time of Appointment with Psychiatrist: 3:00 p.m. Psychiatric Appointment Comment: [address] [facility] Therapist Name of Therapist: None Drug Safety Specialist Name of Drug Safety Specialist: None Post Discharge Appointments Primary Care Physician Name Of Family Doctor: Mary Tom Primary Care Date of Appointment with PCP: 03/20/22 Time of Appointment with PCP: 9:00 a.m. Provider Appointment Comment: [address] [facility] Specialist Name of Specialist: JEOVANNY Stanford Phone Number for Specialist: [phone] Date of Appointment with Specialist: 03/09/22 Time of Appointment with Specialist: 8:30 AM Specialty Appointment Comment: Selam Sanchez Contact Information Discharge Discharge Address: [address] [place] [address], [place] [address]
[2022-03-07] MEDS: LURASIDONE HCL 40 MG TAB PO SCH (17:05)
[2022-03-07] MEDS: traZODone HCL 50 MG TAB PO SCH (21:31)
[2022-03-07] MEDS: OLANZAPINE 2.5 MG TAB PO PRN (22:37)
[2022-03-08] MEDS: GABAPENTIN 300 MG CAP PO SCH ×3 (08:27→21:04)
[2022-03-08] MEDS: POTASSIUM CHLORIDE PWD 20 MEQ PACK PO SCH (08:28)
[2022-03-08] MEDS: TOPIRAMATE 50 MG TAB PO SCH (08:28)
[2022-03-08] MEDS: NICOTINE 21 MG/24 HR TDSY TD SCH (08:28)
[2022-03-08] MEDS: MAGNESIUM OXIDE 400 MG TAB PO SCH ×2 (08:28→21:03)
[2022-03-08] MEDS: metFORMIN HCL 500 MG TAB PO SCH ×2 (08:28→17:26)
[2022-03-08 11:07] LABS: Amphetamine Urine, Confirm NEGATIVE ng/mL (<250); MDA negative; MDEA negative; MDMA (Ecstasy) Urine, Confirm negative; Methamphetamine, Ur Confirm NEGATIVE ng/mL (<250)
--- NOTE | 2022-03-08 12:48 | Psychiatric Progress Note ---
Date of Service March 08, 2022 Impression / Recommendations Impression Antelmo is a 46 yo female with a history of schizophrenia, non compliant with antispsychotic medications for at least several months and prescribed an agent that increases dopamine for weight loss. Phentiramine side effects apparently can also include a tingling sensation in the hands and feet which may be contributing to some of her somatic delusions. She currently needs to rest and has been cooperative with prn Zyprexa which is helping acutely but another agent with a more favorable metabolic profile would be preferred longer term. Started Latuda trial on 03/05/22, refused 03/06/22. Continues on MNPR due to psychosis. 03/08/22: Latuda authorized, reviewed that she is having breaktrhough between Zyprexa doses and effects of Latuda, particularly when avoiding prns and she refused dose on 03/07/22. Reviewed recommendation that she continue hospitalization until her symptoms are under better control but she still states she prefers discharge in am. (1) Schizophrenia: 03/08/22: Latuda 60 mg daily, encourage Ativan prn. Neurontin having some benefit for anxiety/somatic complaints. Ongoing delusions of persecution but not criteria for involuntary commitment as she is not treatening or agitated and is attending to her ADLs. She remains focussed on leaving for her appointment tomorrow. Dr. Tom's office was updated re: psychosis and potential for exacerbation with dopaminergic agents like Wellbutrin and phentiramine in particular as meds have been held here and patient will be directed to hold until sees/speaks with Dr. Tom. Support meeting and safety planning. 03/07/22: patient was initially requesting discharge. Reviewed 72 hr notice and current treatment plan/need for additional stabilization. After extensive discussion about her diagnosis and treatment plan she is agreeable to remain hospitalized. Latuda increase tomorrow after determination from insurance and because only received 1 dose. Neurontin is now TID and seems to have decreased n eed for benzo. Continues to focus on hand/feet/vagina "vibrating" but no longer saying that anyone is poking her or that it's burning. 03/06/22: one more dose of Latuda 40 mg before increase, would like to confirm authorization prior to titrating in case need to switch agents. Notes from [facility] note a trial of Rexulti samples. Titrate Neurontin to 300 mg BID today and TID tomorrow to assist with anxiety and possible neuropathic pain. Decrease prn Zyprexa to 2.5 mg and use Ativan preferentially as concern if sedation continues patient may start to refuse medications. 03/05/22: risks/benefits/alternatives reviewed re: Latuda 40 mg daily with plan for 60 mg as she has been taking other PO meds consistently even when more psychotic and better metabolic profile than agents available by [facility]. Discussion included but was not limited to need for metabolic and TD monitoring but less side effects than Zyprexa and Haldol and she was agreeable. She does not have DM and her complaints about her hands and feet are likely related to tactile angel or medication side effect but will offer Neurontin this hs and she was willing for even capsaicin cream in case there is a neuropathy component, both are on a trial basis. 03/04/22: The patient was admitted to the [facility] ([facility]) on q15 min checks (behavioral with suicide precautions) for safety. The patient will participate in group, recreational, and milieu therapies and will be offered additional individual and family sessions as clinically appropriate. Hold Phentiramine, given that she is grossly psychotic I do not see a need to taper but will monitor for rebound of appetite, particularly with Zyprexa. Will discuss other antipsychotic options when patient is clearer/able. Will provide Ativan prn 1 mg for severe anxiety if breakthrough between Zyprexa doses. Inventory Assets Strengths: unable to assess Needs: compliance with antipsychotic medications, after care Suicide Risk Level Suicide Risk Level: Moderate (q15 min suicide checks) Suicide Risk Level Comments: has denied SI but is active psychotic, no significant agitation. Risk Factors Assessment Mental Health Diagnoses: Yes Protective Factors Assessment Employed: Yes Supportive Family: Yes (need to confirm) Interval History Identifying Information ANTELMO JEAN-BAPTISTE is a 46-year-old F who currently lives in [place], has a hist ory (reportedly) of schizophrenia, and was admitted on 03/03/22 18:19 on a 201 voluntary commitment for delusions and hallcuinations. Chief Complaint "I don't know how I'll deal with that apartment today or how I'll work if people are going to do this to me". Review of Systems Sleep Information Total Hours of Sleep: 5.5 Sleep Comments: pt given trazodone per rn. pt on q-15 minute . Meal Information Percent Meal Consumed - Breakfast: 90 Percent Meal Consumed - Lunch: 100 Percent Meal Consumed - Dinner: 100 Subjective Subjective Patient was seen & assessed and interval progress reviewed with nursing and social work. She reported that she was hearing things again last night, a male voice that kept saying a co-workers name over and over, "as if he's the one doing this." She reports sadness that her grandmother will be moving to [place] as she was hoping to stay with her in [facility] if "things didn't work out here". She told a mental health counselor that she pulled the blinds in her room last night as she was feeling paranoid. Today she states she had a few more auditory hallucinations this am. Per mental health conselor on 03/07/22 who obtained collateral from mother: Millicent stated that Antelmo had her first hospitalization in 2018 at [facility] in [place]. She was unaware that Antelmo had psychiatric problems but now when she looks back on her life she can see the signs. The patient was at [facility] for awhile but was then transferred to another hospital and did not have proper followup care. Mom stated that another hospitalization was at [facility] where she works. She was pushing for discharge before she was ready to actually leave. The mother also stated that 2 years ago she and Antelmo were living together but she had to get a restraining order against Antelmo because she was worried for her safety. Millicent stated that Antelmo was telling her she didn't know who she was and Millicent was worried that the voices Antelmo kept stating she was hearing would tell her to hurt Millicent. The mother stated that Antelmo had been on Haldol in the past and it was helpful but sedating and also Abilify which also was helpful. The mother stated that Antelmo has been complaining of the vaginal pain for a long time and that she would state she was having "Vibrations" in her vagina and she would stuff tampons in her vagina. This counselor did inform her about Antelmo's upcoming gynecology appointment on Saturday. Millicent stated that Antelmo often ends up stopping her medications and this always results in her decompensating. Physical Exam Psychiatric Orientation: alert Apperance: appropriately dressed and appropriately groomed Eye Contact: + fair eye contact Motor Behavior: no abnormal motor movements Speech: normal rate/rhythm/volume of speech Affect: + anxious affect Mood: + anxious mood Thought Process: + perseveration and + concrete thought process Thought Content: + delusions and + persecution (but less) Suicidal Thoughts: denies suicidal thoughts Homicidal Thoughts: denies homicidal thoughts Hallucinations: no auditory hallucinations and no visual hallucinations Cognition: attention grossly intact and language grossly intact Insight: + poor insight Judgement: + poor judgement Vital Signs (Past 24 Hours) Last Vital Signs Temp 37.2 C 03/08/22 06:40 Pulse 78 03/08/22 06:41 Resp 18 03/08/22 06:40 BP 138/92 03/08/22 06:41 Pulse Ox 97 03/07/22 21:31 Results & Data ([facility]) Laboratory Results Laboratory Results - last 24 hr 03/03/22 Unknown U Amphetamines Confirm NEGATIVE U Methamphetamin Confrm NEGATIVE Urine MDEA negative MDMA negative Urine MDMA negative Drug Screen Comment SEE NOTE Current Inpatient Medications Current Inpatient Medications: Current Inpatient Medications Acetaminophen (Acetaminophen 325 Mg Tab) 650 mg PO Q4H PRN PRN Reason: Headache or Minor Fever Stop: 04/02/22 18:18 Al Hydrox/Mg Hydrox/Simethicone (Aluminum/Magnesium Susp 30 Ml Udc) 30 ml PO Q4H PRN PRN Reason: GI Upset Stop: 04/02/22 18:18 Bismuth Subsalicylate (Bismuth Subsalicylate Liqd 236 Ml) 15 ml PO PRN PRN PRN Reason: Loose Stool Stop: 04/02/22 18:18 Capsaicin (Capsaicin Cr 0.075% 60 Gm Tube) 1 appln EXT BID PRN PRN Reason: Pain Stop: 04/04/22 13:03 Gabapentin (Gabapentin 300 Mg Cap) 300 mg PO TID [facility]ISH Stop: 04/05/22 13:59 Last Admin: 03/08/22 08:27 Dose: 300 mg Documented by: Hydroxyzine HCl (Hydroxyzine Hcl 25 Mg Tab) 25 mg PO Q4H PRN PRN Reason: Anxiety Stop: 04/02/22 18:18 Lorazepam (Lorazepam 1 Mg Tab) 1 mg PO Q6 PRN PRN Reason: Anxiety Stop: 04/03/22 10:42 Last Admin: 03/05/22 17:34 Dose: 1 mg Documented by: Lurasidone HCl (Lurasidone Hcl 40 Mg Tab) 60 mg PO QDD [facility] Stop: 04/07/22 17:44 Magnesium Hydroxide (Magnesium Hydroxide Susp 30 Ml Udc) 30 ml PO DAILY PRN PRN Reason: Constipation Stop: 04/02/22 18:18 Magnesium Oxide (Magnesium Oxide 400 Mg Tab) 400 mg PO BID SATISH Stop: 04/03/22 11:14 Last Admin: 03/08/22 08:28 Dose: 400 mg Documented by: Metformin HCl (Metformin Hcl 500 Mg Tab) 1,000 mg PO BIDM [facility] Stop: 04/03/22 17:44 Last Admin: 03/08/22 08:28 Dose: 1,000 mg Documented by: Miscellaneous (Remove Nicoderm Patch) 1 ea N/A DAILY@[id number] [facility] Stop: 04/03/22 08:58 Last Admin: 03/08/22 08:33 Dose: 1 ea Documented by: Nicotine (Nicotine 21 Mg/24 Hr Tdsy) 21 mg TD QAM [facility] Stop: 04/03/22 08:59 Last Admin: 03/08/22 08:28 Dose: 21 mg Documented by: Nicotine Polacrilex (Nicotine Polacrilex 2 Mg Gum) 1 piece MT PRN PRN PRN Reason: Nicotine Olanzapine (Olanzapine 2.5 Mg Tab) 2.5 mg PO Q4 PRN PRN Reason: Agitation Stop: 04/02/22 19:11 Last Admin: 03/07/22 22:37 Dose: 2.5 mg Documented by: Potassium Chloride (Potassium Chloride Pwd 20 Meq Pack) 20 meq PO DAILY [facility] Stop: 04/03/22 11:14 Last Admin: 03/08/22 08:28 Dose: 20 meq Documented by: Sodium Chloride (Sodium Chloride 0.65% Na Soln 45 Ml ([place])) 1 - 2 sprays NA PRN PRN PRN Reason: Nasal Dryness/Congestion Stop: 04/02/22 18:18 Topiramate (Topiramate 50 Mg Tab) 50 mg PO DAILY [facility] Stop: 04/03/22 11:14 Last Admin: 03/08/22 08:28 Dose: 50 mg Documented by: Trazodone HCl (Trazodone Hcl 50 Mg Tab) 50 mg PO HS [facility] Stop: 04/06/22 21:59 Last Admin: 03/07/22 21:31 Dose: 50 mg Documented by: Trazodone HCl (Trazodone Hcl 50 Mg Tab) 50 mg PO HS PRN PRN Reason: insomnia Stop: 04/06/22 21:59 Mental Health & Subst Abuse Tx Psychiatrist Name of Psychiatrist: Mary Jordan PA-C Psychiatrist's Date of Appointment with Psychiatrist: 04/03/22 Time of Appointment with Psychiatrist: 3:00 p.m. Psychiatric Appointment Comment: [address] [facility] Therapist Name of Therapist: None Community Educator Name of Community Educator: [employer] Phone Number for Community Educator: [phone] Case Management Appointment Comment: Will contact you to schedule an initial appt with your casework specialist Post Discharge Appointments Primary Care Physician Name Of Family Doctor: Mary [facility] Date of Appointment with PCP: 03/20/22 Time of Appointment with PCP: 9:00 a.m. Provider Appointment Comment: [address] [facility] Specialist Name of Specialist: JEOVANNY Stanford Phone Number for Specialist: [phone] Date of Appointment with Specialist: 03/09/22 Time of Appointment with Specialist: 8:30 AM Specialty Appointment Comment: Selam Sanchez Contact Information Discharge Discharge [address]: [address] [place] [id number]
[2022-03-08] MEDS ORDERED: LURASIDONE HCL 40 MG TAB PO SCH (17:45)
[2022-03-08] MEDS: traZODone HCL 50 MG TAB PO SCH (21:03)
[2022-03-08] MEDS: OLANZAPINE 2.5 MG TAB PO PRN (22:07)
--- NOTE | 2022-03-09 06:44 | Discharge Summary ---
Date of Service March 09, 2022 History of Present Illness Police were responding to a disturbance yesterday when encountered patient saying disorganized and bizarre things, like seeing a blob in her apartment, misinterpreting some calluses on her feet as being tortured. She was wearing four pairs of socks for protection despite the 90 degree temperature outside. She complained of screaming in her apartment but no one was there. Has also told staff that her hands are burning and that her sons (adults living in [facility]) are . She was being treated for psychosis with Abilifbeba/Abilifbeba andradetenna through [facility] but last shot appears to have been 08/03. She was in the emergency room a few days prior re: her somatic delusions and did follow up in recent past with primary care. She is scheduled for automation qa tester appointment for work up of possible fibroid uterus. Of note she did test positive for meth but is prescribed phentiramine for weight loss which can cause a false positive; she denies use of amphetamines. She reported not sleeping for 5 days prior to admission. Per a 04/03 ED CM note she has experienced these delusions since at least 2018 and at that time had recently relocated to this area from [place], [place]. Physical Exam Psychiatric See admission H&P and DOD assessment. Vital Signs (Past 24 Hours) Last Vital Signs Temp 36.9 C 03/09/22 06:00 Pulse 73 03/09/22 06:32 Resp 18 03/09/22 06:00 BP 113/71 03/09/22 06:32 Pulse Ox 95 03/09/22 06:00 Principal Diagnosis schizophrenia Psychiatric Data See daily stay summary. In short, safety was maintained and the patient was cooperative with care but lacked insight into her schizophrenia, she did not disagree with the diagnosis she just could not understand why her symptoms recurred off of medication and continued to feel that she was being targeted. Phentiramine was held due to his dopaminergic properties and concerns it could exacerbate psychosis; it was likely the cause of her positive amphetamine screen as she denied meth use, etc. She understood she should not resume this medication or Wellbutrin until her psychosis is well controlled on antipsychotic medication (if at all) and will discuss with the prescriber at follow up. It does not appear that a reflex confirmatory test was sent. The prescribing physician was updated re: this change. Zyprexa was used short-term to normalize sleep and treat disorganization and hallucinations. She did not want to continue after a few days due to sedation and this agent was never the longer term plan given her focus on weight gain with Abilify. She ultimately accepted Latuda trial but only received 3 doses prior to discharge as she was a voluntary patient focussed on attending her outpatient automation qa tester appointment. Medication prior auth was obtained from her insurance. Neurontin was used to assist anxiety and empirically treat and underlying neuropathic pain; her hand and feet complaints decreased but still more likely somatic delusions. She was provided a short supply at discharge to limit access to number of pills. It is anticipated that her anxiety will increase on transition back to her apartment as it is still a focus of her paranoia. A short supply of Ativan was prescribed and the rationale for 10 pills was reviewed on return call to the [facility] pharmacist on 03/08/22. She was educated on how to shift her medication dose times on discharge to match her sleep schedule as she historically works nights. A support session was held with her clinician and a safety plan was completed prior to discharge. Jennifer's symptoms improved significantly during her stay in that she was more organized, attending to her ADLs, less distressed by her somatic delusions. Her hallucinations have decreased in frequency and intensity but are still present. They are not command in nature. She remains paranoid re: the cause of her symptoms but is not having any thoughts to act out in anyway against herself or others and exhibited good impulse control on the unit. She has repeatedly requested discharge by this am and does not meet criteria for involuntary commitment. Day of Discharge Assessment see above Transition of Care Transition Of Care Record: was reviewed with the patient Advance Directives Advance Directives Information Provided: No Advance Directives: No Mental Health Advance Directive: No Advance Directives on File: No Living Will: No Power of Mapping Technician: No Advance Directives Reason:: Declines as Mental Health Visit. Suicide Risk Level Suicide Risk Level Comments: low--has consistently denied SI and no longer requiring 24-hr monitoring. Risk Factors Assessment : No Do You Have Access To A Gun?: No Mental Health Diagnoses: Yes Substance Use Disorders: No Protective Factors Assessment Employed: Yes Supportive Family: Yes (need to confirm) Tobacco Cessation at Discharge Tobacco Cessation Medication Prescribed at Discharge: Not Applicable/Non-Smoker Total Time Total Time Spent: Less Than 30 Minutes Total Time Includes: Discharge Planning and Medication Reconciliation Discharge Data Lab Results 03/03/22 03/03/22 03/03/22 12:35 13:36 13:36 WBC 5.17 RBC 3.90 L Hgb 12.6 Hct 36.7 L MCV 94.1 MCH 32.3 MCHC 34.3 RDW Std Deviation 51.6 H RDW Coeff of Xiomara 15.2 H Plt Count 330 MPV 9.3 Immature Gran % (Auto) 0.4 Neut % (Auto) 42.1 Lymph % (Auto) 46.6 Emmet % (Auto) 9.5 Eos % (Auto) 1.2 Baso % (Auto) 0.2 Neut # (Auto) 2.18 Lymph # (Auto) 2.41 Emmet # (Auto) 0.49 Eos # (Auto) 0.06 Baso # (Auto) 0.01 Immature Gran # (Auto) 0.02 Sodium 139 Potassium 3.1 L Chloride 106 Carbon Dioxide 24 Anion Gap 9 BUN 7 Creatinine 0.97 Est Cr Clr Drug Dosing 81.4 Est GFR ( Amer) 80.6 Est GFR (Non-Af Amer) 69.6 BUN/Creatinine Ratio 7.2 L Glucose 87 Fasting Glucose Calcium 8.9 Total Bilirubin 0.5 AST 51 H ALT 29 Alkaline Phosphatase 53 Total Protein 7.4 Albumin 4.0 Globulin 3.4 Albumin/Globulin Ratio 1.2 Triglycerides Cholesterol LDL Cholesterol, Calc VLDL Cholesterol, Calc HDL Cholesterol Cholesterol/HDL Ratio TSH Urine Color Urine Appearance Urine pH Ur Specific Tama Urine Protein Urine Glucose (UA) Urine Ketones Urine Blood Urine Nitrite Urine Bilirubin Urine Urobilinogen Ur Leukocyte Esterase Urine WBC (Auto) Urine RBC (Auto) U Hyaline Cast (Auto) U Epithel Cells (Auto) Urine Bacteria (Auto) POC Ur Test Salicylates Urine Opiates Screen Ur Methadone, Qual Acetaminophen Urine Barbiturates Ur Phencyclidine (PCP) U Amphetamines Confirm U Amphetamin/Meth Scrn U Methamphetamin Confrm Urine MDEA MDMA (Ecstasy) Screen MDMA Urine MDMA U Benzodiazepines Scrn Ur Cocaine Metabolite U Marijuana (THC) Screen Drug Screen Comment Ethyl Alcohol mg/dL SARS-CoV-2, RNA, NAAT NEGATIVE 03/03/22 03/03/22 03/03/22 13:36 13:36 13:36 WBC RBC Hgb Hct MCV MCH MCHC RDW Std Deviation RDW Coeff of Xiomara Plt Count MPV Immature Gran % (Auto) Neut % (Auto) Lymph % (Auto) Emmet % (Auto) Eos % (Auto) Baso % (Auto) Neut # (Auto) Lymph # (Auto) Emmet # (Auto) Eos # (Auto) Baso # (Auto) Immature Gran # (Auto) Sodium Potassium Chloride Carbon Dioxide Anion Gap BUN Creatinine Est Cr Clr Drug Dosing Est GFR ( Amer) Est GFR (Non-Af Amer) BUN/Creatinine Ratio Glucose Fasting Glucose Calcium Total Bilirubin AST ALT Alkaline Phosphatase Total Protein Albumin Globulin Albumin/Globulin Ratio Triglycerides Cholesterol LDL Cholesterol, Calc VLDL Cholesterol, Calc HDL Cholesterol Cholesterol/HDL Ratio TSH 0.738 Urine Color Urine Appearance Urine pH Ur Specific Tama Urine Protein Urine Glucose (UA) Urine Ketones Urine Blood Urine Nitrite Urine Bilirubin Urine Urobilinogen Ur Leukocyte Esterase Urine WBC (Auto) Urine RBC (Auto) U Hyaline Cast (Auto) U Epithel Cells (Auto) Urine Bacteria (Auto) POC Ur Test Salicylates < 3.0 L Urine Opiates Screen Ur Methadone, Qual Acetaminophen < 3 L Urine Barbiturates Ur Phencyclidine (PCP) U Amphetamines Confirm U Amphetamin/Meth Scrn U Methamphetamin Confrm Urine MDEA MDMA (Ecstasy) Screen MDMA Urine MDMA U Benzodiazepines Scrn Ur Cocaine Metabolite U Marijuana (THC) Screen Drug Screen Comment Ethyl Alcohol mg/dL < 10.0 SARS-CoV-2, RNA, NAAT 03/03/22 03/03/22 03/03/22 15:05 Unknown Unknown WBC RBC Hgb Hct MCV MCH MCHC RDW Std Deviation RDW Coeff of Xiomara Plt Count MPV Immature Gran % (Auto) Neut % (Auto) Lymph % (Auto) Emmet % (Auto) Eos % (Auto) Baso % (Auto) Neut # (Auto) Lymph # (Auto) Emmet # (Auto) Eos # (Auto) Baso # (Auto) Immature Gran # (Auto) Sodium Potassium Chloride Carbon Dioxide Anion Gap BUN Creatinine Est Cr Clr Drug Dosing Est GFR ( Amer) Est GFR (Non-Af Amer) BUN/Creatinine Ratio Glucose Fasting Glucose Calcium Total Bilirubin AST ALT Alkaline Phosphatase Total Protein Albumin Globulin Albumin/Globulin Ratio Triglycerides Cholesterol LDL Cholesterol, Calc VLDL Cholesterol, Calc HDL Cholesterol Cholesterol/HDL Ratio TSH Urine Color Dark Yellow Urine Appearance Clear Urine pH 5.5 Ur Specific Tama 1.019 Urine Protein 1+ H Urine Glucose (UA) Negative Urine Ketones Trace H Urine Blood Negative Urine Nitrite Negative Urine Bilirubin Negative Urine Urobilinogen Negative Ur Leukocyte Esterase Negative Urine WBC (Auto) 1-5 Urine RBC (Auto) 0-4 U Hyaline Cast (Auto) 1-5 U Epithel Cells (Auto) >30 H Urine Bacteria (Auto) Negative POC Ur Test NEG Salicylates Urine Opiates Screen Neg Ur Methadone, Qual Neg Acetaminophen Urine Barbiturates Neg Ur Phencyclidine (PCP) Neg U Amphetamines Confirm U Amphetamin/Meth Scrn Pos H U Methamphetamin Confrm Urine MDEA MDMA (Ecstasy) Screen Pos H MDMA Urine MDMA U Benzodiazepines Scrn Neg Ur Cocaine Metabolite Neg U Marijuana (THC) Screen Neg Drug Screen Comment Ethyl Alcohol mg/dL SARS-CoV-2, RNA, NAAT 03/03/22 03/06/22 Unknown 07:18 WBC RBC Hgb Hct MCV MCH MCHC RDW Std Deviation RDW Coeff of Xiomara Plt Count MPV Immature Gran % (Auto) Neut % (Auto) Lymph % (Auto) Emmet % (Auto) Eos % (Auto) Baso % (Auto) Neut # (Auto) Lymph # (Auto) Emmet # (Auto) Eos # (Auto) Baso # (Auto) Immature Gran # (Auto) Sodium Potassium 4.1 Chloride Carbon Dioxide Anion Gap BUN Creatinine Est Cr Clr Drug Dosing Est GFR ( Amer) Est GFR (Non-Af Amer) BUN/Creatinine Ratio Glucose Fasting Glucose 94 Calcium Total Bilirubin AST ALT Alkaline Phosphatase Total Protein Albumin Globulin Albumin/Globulin Ratio Triglycerides 113 Cholesterol 163 LDL Cholesterol, Calc 69 VLDL Cholesterol, Calc 23 HDL Cholesterol 71 Cholesterol/HDL Ratio 2.3 TSH Urine Color Urine Appearance Urine pH Ur Specific Tama Urine Protein Urine Glucose (UA) Urine Ketones Urine Blood Urine Nitrite Urine Bilirubin Urine Urobilinogen Ur Leukocyte Esterase Urine WBC (Auto) Urine RBC (Auto) U Hyaline Cast (Auto) U Epithel Cells (Auto) Urine Bacteria (Auto) POC Ur Test Salicylates Urine Opiates Screen Ur Methadone, Qual Acetaminophen Urine Barbiturates Ur Phencyclidine (PCP) U Amphetamines Confirm NEGATIVE U Amphetamin/Meth Scrn U Methamphetamin Confrm NEGATIVE Urine MDEA negative MDMA (Ecstasy) Screen MDMA negative Urine MDMA negative U Benzodiazepines Scrn Ur Cocaine Metabolite U Marijuana (THC) Screen Drug Screen Comment SEE NOTE Ethyl Alcohol mg/dL SARS-CoV-2, RNA, NAAT Hospital Course (1) Schizophrenia: 03/08/22: Latuda 60 mg daily, encourage Ativan prn. Neurontin having some benefit for anxiety/somatic complaints. Ongoing delusions of persecution but not criteria for involuntary commitment as she is not treatening or agitated and is attending to her ADLs. She remains focussed on leaving for her appointment tomorrow. Dr. Tom's office was updated re: psychosis and potential for exacerbation with dopaminergic agents like Wellbutrin and phentiramine in particular as meds have been held here and patient will be directed to hold until sees/speaks with Dr. Tom. Support meeting and safety planning. 03/07/22: patient was initially requesting discharge. Reviewed 72 hr notice and current treatment plan/need for additional stabilization. After extensive discussion about her diagnosis and treatment plan she is agreeable to remain hospitalized. Latuda increase tomorrow after determination from insurance and because only received 1 dose. Neurontin is now TID and seems to have decreased need for benzo. Continues to focus on hand/feet/vagina "vibrating" but no longer saying that anyone is poking her or that it's burning. 03/06/22: one more dose of Latuda 40 mg before increase, would like to confirm authorization prior to titrating in case need to switch agents. Notes from [facility] note a trial of Rexulti samples. Titrate Neurontin to 300 mg BID today and TID tomorrow to assist with anxiety and possible neuropathic pain. Decrease prn Zyprexa to 2.5 mg and use Ativan preferentially as concern if sedation continues patient may start to refuse medications. 03/05/22: risks/benefits/alternatives reviewed re: Latuda 40 mg daily with plan for 60 mg as she has been taking other PO meds consistently even when more ps ychotic and better metabolic profile than agents available by [facility]. Discussion included but was not limited to need for metabolic and TD monitoring but less side effects than Zyprexa and Haldol and she was agreeable. She does not have DM and her complaints about her hands and feet are likely related to tactile angel or medication side effect but will offer Neurontin this hs and she was willing for even capsaicin cream in case there is a neuropathy component, both are on a trial basis. 03/04/22: The patient [facility] on q15 min checks (behavioral with suicide precautions) for safety. The patient will participate in group, recreational, and milieu therapies and will be offered additional individual and family sessions as clinically appropriate. Hold Phentiramine, given that she is grossly psychotic I do not see a need to taper but will monitor for rebound of appetite, particularly with Zyprexa. Will discuss other antipsychotic options when patient is clearer/able. Will provide Ativan prn 1 mg for severe anxiety if breakthrough between Zyprexa doses. Mental Health & Subst Abuse Tx Psychiatrist Name of Psychiatrist: Mary Jordan PA-C Psychiatrist's Date of Appointment with Psychiatrist: 04/03/22 Time of Appointment with Psychiatrist: 3:00 p.m. Psychiatric Appointment Comment: [address] [facility] Therapist Name of Therapist: None Finance Manager Name of Finance Manager: [facility] Phone Number for Finance Manager: [phone] Case Management Appointment Comment: Will contact you to schedule an initial appt with your rn case management Post Discharge Appointments Primary Care Physician Name Of Family Doctor: Mary Tom Primary [facility] Date of Appointment with PCP: 03/20/22 Time of Appointment with PCP: 9:00 a.m. Provider Appointment Comment: [address] [facility] Partial or Psych Rehab Name of Partial or Psych Rehab: [facility] Candie Morales Phone Number of Partial or Psych Rehab: [phone] Partial or Psych Rehab Appointment Comment: Follow up as routinely scheduled Specialist Name of Specialist: JEOVANNY Stanford Phone Number for Specialist: [phone] Date of Appointment with Specialist: 03/09/22 Time of Appointment with Specialist: 8:30 AM Specialty Appointment Comment: Selam Sanchez Smoking Cessation Counseling Tobacco Cessation Medication Prescribed at Discharge: Not Applicable/Non-Smoker Contact Information Discharge Discharge [address]: [address] [place] [id number] Discharge Plan Discharge Items Patient Disposition: Home - Self-Care Reason For Visit: PSYCHOTIC DISORDER Discharge Diagnosis: schizophrenia Activity: Resume your previous activity Non-emergency contact: Primary Care Provider, Psychiatrist, Therapist and Managed Services Sales Consultant Call non-emergency contact if: you have any medication questions and your symptoms worsen Follow-up/Referrals: Zee Kikr MD [Primary Care Provider] - Diet: Regular Addtl Attending Provider Instructions: SPECIAL CARE INSTRUCTIONS: 1. Follow through with your scheduled aftercare appointments. If unable to keep an appointment, please call to reschedule. 2. Take your medication only as prescribed. Medication should not be changed or stopped without the approval of your doctor. In the event of worsening symptoms or concerns about side effects, contact your doctor immediately. 3. Utilize new healthy coping skills, anger management skills, and stress management skills learned during your hospitalization. Journal feelings and process them with a support person. Identify stressors or situations that may result in relapse, deterioration or inappropriate behaviors and develop a plan to deal with those issues. 4. If your coping skills are ineffective and you are in crisis, contact your outpatient providers for direction. If unable to reach your providers, please call the [facility] CRISIS LINE AT , go to the [facility] walk-in center at [address], [address], [place], or go to the closest Emergency Room. 5. Avoid alcohol and un-prescribed drugs. 6. You have been provided with the Mental Health Advance Directives Pamphlet for your review. 7. Your condition is stable for discharge to outpatient level of care, but recovery is an ongoing process. Ifthoughts to harm yourself or others return, follow the safety plan developed during your stay. Planning for a safe return home includes securing weapons. Our treatment team recommends weaponsbe removed from the home until your outpatient provider reassesses your progress. In rare cases where the items themselvescannot be removed, guns and ammunitionshould be secured separatelyand keys stored by a reliable personoutside of the home. If you were admitted on an involuntary commitment, the police or other legal authorities may be involved in this process. AFTERCARE APPOINTMENTS: * Please call your insurance company prior to your scheduled appointment to confirm your aftercare providers are covered. Take your insurance information to your appointments. WHO TO CALL AND WHEN: Medical Emergencies: For questions or emergencies related to your hospital stay, please contact the Inpatient Behavioral Health Unit at [phone]. A mold yard supervisor is on-call 06/05 for the Behavioral Health Unit for emergencies At any time you feel your situation is an emergency, you may also call 911 immediately. Pending Studies at Discharge: No Stand-Alone Forms: My [facility], Smoking Cessation Medications and DC Order Prescriptions: New Latuda 60 mg tablet See Rx Instructions .ROUTE .COMPLEX Qty: 30 RF: 0 trazodone 50 mg Tablet 50 mg PO HS 30 Days Qty: 30 RF: 0 gabapentin 300 mg Capsule 300 mg PO TID 10 Days Qty: 30 RF: 2 lorazepam 1 mg Tablet 1 mg PO Q6 PRN (Reason: Anxiety) 10 Days Qty: 10 RF: 0 Continued topiramate 50 mg tablet 50 mg PO DAILY RF: 0 acetaminophen [Tylenol Extra Strength] 500 mg Tablet 500 mg PO Q6H PRN (Reason: Pain) RF: 0 metformin 1,000 mg tablet 1,000 mg PO BIDM RF: 0 potassium chloride 20 mEq packet 20 meq PO DAILY Qty: 30 RF: 0 magnesium oxide 400 mg magnesium capsule 400 mg PO BID Qty: 60 RF: 0 Discontinued phentermine 37.5 mg capsule 37.5 mg PO DAILY RF: 0 Mood Stabilizer 0 tab PO DAILY RF: 0 Discharge Orders: Discharge Order (Routine); Ordered 03/09/22 Ordered By: Romy Rendon Admission Data Admit Date/Time: 03/03/22 18:19 Attending Provider: Romy Rendon Admit Provider: Romy Rendon Primary Care Provider: Zee Kirk Other Interventions: PSY Interdisciplinary Discharge Planning Last Done: 03/08/22 13:40 Coding Level of Care Code None Diagnoses Schizophrenia F20.9
[2022-03-09] MEDS: TOPIRAMATE 50 MG TAB PO SCH (07:24)
[2022-03-09] MEDS: metFORMIN HCL 500 MG TAB PO SCH (07:25)
[2022-03-09] MEDS: MAGNESIUM OXIDE 400 MG TAB PO SCH (07:25)
[2022-03-09] MEDS: POTASSIUM CHLORIDE PWD 20 MEQ PACK PO SCH (07:25)
[2022-03-09] MEDS: GABAPENTIN 300 MG CAP PO SCH (07:25)
[2022-03-09] MEDS: NICOTINE 21 MG/24 HR TDSY TD SCH (07:26)
== END 2022-03-09 07:30 | disposition home or self-care (01) | DRG 885 ==
LOC: ED 12:15 → 3S 18:19
DX: Z91.14 Patient's other noncompliance with medication regimen; Z88.0 Allergy status to penicillin; F20.9 Schizophrenia, unspecified; Z79.84 Long term (current) use of oral hypoglycemic drugs; E87.6 Hypokalemia; D25.9 Leiomyoma of uterus, unspecified